=== PATIENT | female | born 1990 | race African-American/Black ===

== ENCOUNTER 2017-03-17 19:20 | Emergency (ER) | payer OTHER ==
[2017-03-17 19:31] VITALS: BP 121/85; PULSE 102; TEMP 98.2; BMI 26.2
--- NOTE | 2017-03-17 22:05 | PDOC ---
History of Present Illness - General Chief Complaint: Vaginal Bleeding Stated Complaint: VAGINAL BLEEDING/5 WKS Time Seen by Provider: 03/17/17 20:38 - History of Present Illness Initial Comments: 03/17/17 21:31 CHIEF COMPLAINT: HISTORY OF PRESENT ILLNESS: 26 yo F presents to ED with abdominal cramping and vaginal bleeding since "around 6:30 tonight." Patient reports her LMP was 02/08/17 and was told at the clinic her EGA by LMP was 5 weeks. She denies any dizziness, lightheadedness, palpitations. PAST MEDICAL HISTORY: Denies past medical history FAMILY HISTORY: Denies SOCIAL HISTORY:Denies tobacco, alcohol, illicit drug use. SURGICAL HISTORY: Denies ALLERGIES: No known drug allergies REVIEW OF SYSTEMS as per HPI PHYSICAL EXAM General Appearance: Well-appearing, appropriately dressed. No apparent distress. HEENT: EOMI, PERRLA. No conjunctival pallor. No photophobia, scleral icterus. Respiratory/Chest: Lungs CTAB. Cardiovascular: RRR. S1, S2. Gastrointestinal/Abdominal: Normal bowel sounds. Abdomen soft, non-distended. No tenderness or rebound tenderness. No organomegaly, pulsatile mass, guarding , hernia, hepatomegaly, splenomegaly. Musculoskeletal/Extremities: Normal inspection. FROM of all extremities, normal capillary refill. Pelvis Stable. No CVA tenderness. No tenderness to extremities, pedal edema, swelling, erythema or deformity. Integumentary: Appropriate color, dry, warm. No cyanosis, erythema, jaundice or rash Neurologic: pressure supervisor II-XII intact. Fully oriented, alert. Appropriate mood/affect. Motor strength 5/5. No appreciable EOM palsy, facial droop or sensory deficit. Past History - Past Medical History Allergies/Adverse Reactions: Allergies Allergy/AdvReac Type Severity Reaction Status Date / Time No Known Allergies Allergy Verified 03/18/17 02:31 Home Medications: Ambulatory Orders NK [No Known Home Medication] 03/18/17 - Reproductive History (#): 2 Para: 0 Therapeutic (s) & number: Yes Spontaneous : 0 - Suicide/Smoking/Psychosocial Hx Smoking Status: No Smoking History: Never smoked Have you smoked in the past 12 months: No Number of Cigarettes Smoked Daily: 0 Information on smoking cessation initiated: No Hx Alcohol Use: No Drug/Substance Use Hx: No Substance Use Type: None *Physical Exam - Vital Signs Last Vital Signs Temp Pulse Resp BP Pulse Ox 98.2 F 102 H 18 121/85 100 03/17/17 19:27 03/17/17 19:27 03/17/17 19:27 03/17/17 19:27 03/17/17 19:27 ED Treatment Course - LABORATORY CBC & Chemistry Diagram: 03/17/17 22:20 Medical Decision Making - Medical Decision Making 03/17/17 23:45 26 yo F presents to ED with abdominal cramping and vaginal bleeding since "around 6:30 tonight." -CBC, CMP, PT/INR, beta hcg -TV ultrasound beta hcg 25 TV ultrasound negative for IUP, ? early vs ectopic vs miscarriage Advised patient that she must return or go to clinic in 48 hours for repeat blood work. Advised patient of signs and symptoms for return to ER; patient verbalized understanding and agrees to plan. = *DC/Admit/Observation/Transfer Diagnosis at time of Disposition: Vaginal bleeding in - Discharge Dispostion Disposition: HOME Condition at time of disposition: Stable Admit: No - Patient Instructions Printed Discharge Instructions: DI for Vaginal Bleeding During , DI for Ectopic , DI for Threatened Additional Instructions: It is unclear the cause of your vaginal bleeding. As discussed, you MUST return in 48 hours to either the emergency room or the clinic to repeat your bloodwork. If you develop any severe bleeding (more than one soaked pad an hour ), fever, chills, increased abdominal pain (especially to one side), or any new or worsening symptoms, please return to the ER. - Post Discharge Activity Forms/Work/School Notes: Back to Work
[2017-03-17 22:25] LABS: URINE APPEARANCE SLCLOUDY; URINE BILIRUBIN NEGATIVE (NEGATIVE); URINE BLOOD 3+ (NEGATIVE); URINE COLOR YELLOW; URINE GLUCOSE (UA) NEGATIVE (NEGATIVE); URINE KETONE NEGATIVE (NEGATIVE); URINE NITRITE NEGATIVE (NEGATIVE); URINE PROTEIN NEGATIVE (NEGATIVE); URINE UROBILINOGEN NEGATIVE mg/dL (0.2-1.0)
[2017-03-17 22:28] LABS: URINE BACTERIA RARE /hpf (NONE SEEN); URINE MUCUS RARE; URINE RBC 3 /hpf (0-3); URINE WBC 23 /hpf (3-5)
[2017-03-17 22:39] LABS: BASOPHIL 0.7 % (0-2.0); EOSINOPHIL 2.1 % (0-4.5); MCH 27.6 pg (25.7-33.7); MCHC 34.4 g/dl (32.0-36.0); MEAN CELL VOLUME 80.1 fl (80-96); MEAN PLT VOLUME 10.1 fl (7.5-11.1); PLATELET COUNT 306 K/MM3 (134-434); RDW 14.6 % (11.6-15.6); WHITE BLOOD COUNT 6.5 K/mm3 (4.0-10.0)
[2017-03-17 23:43] LABS: URINE LEUK ESTERASE TRACE (NEGATIVE)
== END 2017-03-18 00:09 | disposition home or self-care (01) ==
LOC: JER 19:20 → UNDOADMIN 22:05 → JERBED 22:05 → JER 03-18 00:09
DX: O20.8 Other hemorrhage in early pregnancy (principal); Z3A.01 Less than 8 weeks gestation of pregnancy
CPT/HCPCS: 36415; 76817-TC; 81003; 81015; 84702; 85025; 86850; 86900; 86901; 87086; 99282-25

== ENCOUNTER 2017-11-14 20:34 | Emergency (ER) | payer OTHER ==
--- NOTE | 2017-11-14 20:42 | PDOC ---
Rapid Medical Evaluation Time Seen by Provider: 11/14/17 20:38 Medical Evaluation: Allergies Allergy/AdvReac Type Severity Reaction Status Date / Time No Known Allergies Allergy Verified 03/18/17 02:31 11/14/17 20:41 I have performed a brief in-person evaluation of this patient. The patient presents with a chief complaint of: lower abdominal cramping 10wks Pertinent physical exam findings: abd SNTND. Cosmetologist Apprentice- deferred I have ordered the following: urine, labs, TVUS The patient will proceed to the ED for further evaluation. Discharge Disposition - Diagnosis Abdominal cramping - Referrals - Patient Instructions - Post Discharge Activity
[2017-11-14 20:44] VITALS: BMI 28.3
[2017-11-14 21:33] LABS: URINE APPEARANCE CLEAR; URINE BILIRUBIN NEGATIVE (<2.0 mg/dL); URINE BLOOD NEGATIVE (NEGATIVE); URINE COLOR STRAW; URINE GLUCOSE (UA) NEGATIVE (NEGATIVE); URINE KETONE TRACE (NEGATIVE); URINE LEUK ESTERASE NEGATIVE (NEGATIVE); URINE NITRITE NEGATIVE (NEGATIVE); URINE PROTEIN NEGATIVE (NEGATIVE); URINE UROBILINOGEN NEGATIVE mg/dL (0.2-1.0)
[2017-11-14 22:33] LABS: BASO % 0.9 % (0-2.0); EOS % 1.1 % (0-4.5); HEMATOCRIT 37.9 % (32.4-45.2); HEMOGLOBIN 12.9 GM/dL (10.7-15.3); LYMPH % 23.6 % (8-40); MCH 27.1 pg (25.7-33.7); MEAN CELL VOLUME 79.8 fl (80-96); MEAN PLT VOLUME 9.3 fl (7.5-11.1); MONO % 6.9 % (3.8-10.2); NEUT % 67.5 % (42.8-82.8); PLATELET COUNT 339 K/MM3 (134-434); RBC 4.74 M/mm3 (3.60-5.2); RDW 14.6 % (11.6-15.6); WHITE BLOOD COUNT 7.8 K/mm3 (4.0-10.0)
[2017-11-14 22:59] LABS: ANION GAP 7 (8-16); BLOOD UREA NITROGEN 4 mg/dL (7-18); CALCIUM 9.9 mg/dL (8.5-10.1); CHLORIDE 102 mmol/L (98-107); CO2 26 mmol/L (21-32); CREATININE 0.5 mg/dL (0.55-1.02); GLUCOSE,RANDOM 81 mg/dL (74-106); POTASSIUM 3.9 mmol/L (3.5-5.1); SODIUM 135 mmol/L (136-145)
--- NOTE | 2017-11-14 23:00 | PDOC ---
History of Present Illness - General Chief Complaint: Pain Stated Complaint: CRAMPS/10WKS Time Seen by Provider: 11/14/17 20:38 History Source: Patient - History of Present Illness Initial Comments: 11/14/17 22:55 27yoF at approx 10w by dates, LMP 09/01/17, presnets w/ uterine cramping pain all day today, NO BLEEDING. did not eat or drink today becuase feeling cramps. no vomiting no fever. VS reviewed, HR 104 on triage HR normalized to 86 on examination. NAD + enlarged fibroid uterus. transabd sono w/ + live active IUP, FHR 150 bpm. 27yoF w/ cramping during . Udip from RME negative for infection OK for DC. Advised hydration, hydration, hydration. Has OB appointment in 2 weeks. Continue vitamins. Past History - Past Medical History Allergies/Adverse Reactions: Allergies Allergy/AdvReac Type Severity Reaction Status Date / Time No Known Allergies Allergy Verified 11/14/17 20:42 Home Medications: Ambulatory Orders Ferrous Sulfate [Iron] 325 mg PO DAILY 11/14/17 Vit 108/Iron/Folic AC [ One Tablet] 1 each PO DAILY 11/14/17 COPD: No - Reproductive History Is Patient Now?: Yes (#): 1 Para: 0 Cervical CA: No Dysfunctional Uterine Bleeding: No Ectopic : No Endometrial CA: No Polycystic Ovaries: No Therapeutic (s) & number: Yes Tubal Ligation: No Spontaneous : 0 - Suicide/Smoking/Psychosocial Hx Smoking Status: No Smoking History: Never smoked Have you smoked in the past 12 months: No Number of Cigarettes Smoked Daily: 0 Hx Alcohol Use: No Drug/Substance Use Hx: No Substance Use Type: None *Physical Exam - Vital Signs Last Vital Signs Temp Pulse Resp BP Pulse Ox 98.6 F 104 H 18 122/76 99 11/14/17 20:43 11/14/17 20:43 11/14/17 20:43 11/14/17 20:43 11/14/17 20:43 ED Treatment Course - LABORATORY CBC & Chemistry Diagram: 11/14/17 22:22 11/14/17 22:22 - ADDITIONAL ORDERS Additional order review: Laboratory Results 11/14/17 20:43 Urine Color Straw Urine Appearance Clear Urine pH 6.0 Ur Specific [place] 1.008 Urine Protein Negative Urine Glucose (UA) Negative Urine Ketones Trace H Urine Blood Negative Urine Nitrite Negative Urine Bilirubin Negative Urine Urobilinogen Negative Ur Leukocyte Esterase Negative 11/14/17 22:22 RBC 4.74 MCV 79.8 L MCHC 34.0 RDW 14.6 MPV 9.3 Neutrophils % 67.5 Lymphocytes % 23.6 D Monocytes % 6.9 Eosinophils % 1.1 Basophils % 0.9 *DC/Admit/Observation/Transfer Diagnosis at time of Disposition: Abdominal cramping, - Discharge Dispostion Disposition: HOME Condition at time of disposition: Good Decision to Admit order: No - Referrals Referrals: Marianne Jolly MD [Primary Care Provider] - - Patient Instructions Additional Instructions: Followup with your CHARGE ACCOUNT CLERK as scheduled. Continue vitamins. Be sure to eat and stay hydrated. The most common cause of cramping in is dehydration. Call your doctor if you have bleeding AND cramping together similar to a period. Return to the ER if: you have bleeding SOAKING through more than 2 pads per HOUR. - Post Discharge Activity
[2017-11-14 23:11] VITALS: BP 110/82; PULSE 89; TEMP 98.5
[2017-11-14 23:19] LABS: PLATELET ESTIMATE ADEQUATE
== END 2017-11-14 23:11 | disposition home or self-care (01) ==
LOC: JER 20:34
DX: O26.891 Other specified pregnancy related conditions, first trimester (principal); R10.30 Lower abdominal pain, unspecified; Z3A.10 10 weeks gestation of pregnancy
CPT/HCPCS: 36415; 80048; 81003; 84702; 85025; 86850; 86900; 86901; 87086; 99282-25

== ENCOUNTER 2018-02-26 18:51 | Emergency (ER) | payer OTHER ==
--- NOTE | 2018-02-26 19:00 | PDOC ---
Rapid Medical Evaluation Time Seen by Provider: 02/26/18 18:57 Medical Evaluation: Allergies Allergy/AdvReac Type Severity Reaction Status Date / Time No Known Allergies Allergy Verified 01/15/18 15:51 I have performed a brief in-person evaluation of this patient. The patient presents with a chief complaint of: 25 weeks . Feels dizzy. headache. No vaginal bleeding. No abd pain. Pertinent physical exam findings: none. I have ordered the following: UA/culture, labs, IV insert The patient will proceed to the ED for further evaluation. Discharge Disposition - Diagnosis Dizziness, - Referrals - Patient Instructions - Post Discharge Activity
[2018-02-26 19:05] VITALS: BMI 33.3
--- NOTE | 2018-02-26 19:32 | PDOC ---
History of Present Illness - General Chief Complaint: Lightheaded Stated Complaint: WEAKNESS/25 WKS Time Seen by Provider: 02/26/18 18:57 History Source: Patient - History of Present Illness Initial Comments: 02/26/18 19:33 Patient is a 27 year old female at a self-reported 27 weeks gestation who presents to our ED c/o weakness and abdominal pressure. Denies any shortness of breath, chest pain. States she has had decreased PO intake over the last few days. Last office administrator appointment 3 weeks previous at which time everything was normal. Patient denies diarrhea/constipation, dysuria/hematuria, sick contact or recent travel. NKDA Surgical: denies Social: denies toxic habits OB-Group Account Director: Dr. Bales Past History - Past Medical History Allergies/Adverse Reactions: Allergies Allergy/AdvReac Type Severity Reaction Status Date / Time No Known Allergies Allergy Verified 02/26/18 19:01 Home Medications: Ambulatory Orders Ferrous Sulfate [Iron] 325 mg PO DAILY 11/14/17 Vit 108/Iron/Folic AC [ One Tablet] 1 each PO DAILY 11/14/17 COPD: No DVT: No Disorders: Yes (fibroids) - Reproductive History (#): 1 Para: 0 Cervical CA: No Dysfunctional Uterine Bleeding: No Ectopic : No Endometrial CA: No Polycystic Ovaries: No Therapeutic (s) & number: Yes Tubal Ligation: No Spontaneous : 0 - Suicide/Smoking/Psychosocial Hx Smoking Status: No Smoking History: Never smoked Have you smoked in the past 12 months: No Number of Cigarettes Smoked Daily: 0 Information on smoking cessation initiated: No Hx Alcohol Use: No Drug/Substance Use Hx: No Substance Use Type: None Review of Systems - Review of Systems Constitutional: Yes: Weakness. No: Chills, Fever HEENTM: No: Blurred Vision, Double Vision Respiratory: No: Cough, Shortness of Breath Cardiac (ROS): No: Chest Pain, Lightheadedness, Palpitations, Syncope ABD/GI: Yes: Poor Fluid Intake. No: Constipated, Diarrhea, Nausea, Vomiting : No: Burning, Dysuria *Physical Exam - Vital Signs Last Vital Signs Temp Pulse Resp BP Pulse Ox 98.4 F 111 H 19 118/73 99 02/26/18 18:59 02/26/18 18:59 02/26/18 18:59 02/26/18 18:59 02/26/18 18:59 - Physical Exam General Appearance: Yes: Nourished, Appropriately Dressed HEENT: positive: EOMI, VINH Neck: positive: Trachea midline, Supple Respiratory/Chest: positive: Lungs Clear, Normal Breath Sounds. negative: Labored Respiration, Rapid RR Cardiovascular: positive: S1, S2 Gastrointestinal/Abdominal: positive: Other (Fundal height above umbilicus) Musculoskeletal: negative: CVA Tenderness (R), CVA Tenderness (L) Extremity: positive: Normal Capillary Refill, Normal Inspection Integumentary: positive: Normal Color, Dry, Warm Neurologic: positive: unhairing inspector II-XII NML intact, Fully Oriented, Alert ED Treatment Course - LABORATORY CBC & Chemistry Diagram: 02/26/18 19:43 02/26/18 22:11 Medical Decision Making - Medical Decision Making 02/26/18 20:39 27 year old female with weakness and abdominal pressure. Labs ordered in triage. Will add on EKG and Troponin. Reassess. 02/26/18 21:01 Patient reassesed - symptomatically improved UA clean CMP, Trop pending EKG shows Sinus Tach (HR 105) no NAI/STD, TWI - non ischemic ECG, no prior ECG in system Repeat VS pending 02/26/18 21:03 CMP hemolyzed. Repeat CMP Tachycardia resolved 02/26/18 22:46 CMP unremarkable. Will discharge to L&D for further evaluation. *DC/Admit/Observation/Transfer Diagnosis at time of Disposition: , Weakness - Discharge Dispostion Disposition: HOME Condition at time of disposition: Good Decision to Admit order: No - Referrals Referrals: Mir Lindsey MD [Primary Care Provider] - - Patient Instructions Additional Instructions: You were evaluated today for weakness and lightheadedness. All of your labs and an EKG showed no concerning findings. Please follow-up with your office administrator in the next 2-3 days. Labor and delivery instructions:Discharge to home. Diet and activity as tolerated. Keep all scheduled appointments. Drink 8-10 glasses of water a day to stay hydrated. Return to the hospital if you begin having contractions that are increasing in intensity for one hour, your water breaks, you start bleeding, or you do not feel the baby moving. - Post Discharge Activity
[2018-02-26] MEDS ORDERED: SODIUM CHLORIDE 0.9% 500 ML INFUS.BAG IV ONE (19:38)
--- NOTE | 2018-02-26 19:55 | PDOC ---
Attending Attestation - Resident Resident Name: Corrine Lozada - ED Attending Attestation I have performed the following: I have examined & evaluated the patient, The case was reviewed & discussed with the resident, I agree w/resident's findings & plan, Exceptions are as noted - HPI HPI: 02/26/18 19:54 The patient is a 27 year old female, 25 weeks , with no significant past medical history who presents to the ER with lightheadedness. Pt states that she felt like she was going to pass out but did not lose consciousness. Pt denies CP/SOB. Denies any new leg swelling. Patient states she has not eaten anything today. The patient denies chest pain, shortness of breath, headache, and dizziness. Denies fever, chills, nausea, vomit, diarrhea, and constipation. Denies dysuria, frequency, urgency, and hematuria. Allergies: NKA Past surgical history: None reported. Social history: No reported alcohol, drug, or cigarette use. pediatric intensive physician: Dr. Lindsey - Physicial Exam PE: 02/26/18 19:55 GENERAL: Awake, alert, and fully oriented, in no acute distress. HEAD: No signs of trauma EYES: PERRLA, EOMI, sclera anicteric, conjunctiva clear ENT: Auricles normal inspection, hearing grossly normal, nares patent, oropharynx clear without exudates. Moist mucosa NECK: Nontender, no stepoffs, Normal ROM, supple, no lymphadenopathy, JVD, or masses LUNGS: Breath sounds equal, clear to auscultation bilaterally. No wheezes, and no crackles HEART: Regular rate and rhythm, normal S1 and S2, no murmurs, rubs or gallops ABDOMEN: Soft, gravid, nontender, normoactive bowel sounds. No guarding, no rebound. No masses EXTREMITIES: Normal range of motion, no edema. No clubbing or cyanosis. No cords, erythema, or tenderness NEUROLOGICAL: Cranial nerves II through XII intact. 5/5 strength and sensation in all extremities, Normal speech, normal gait, normal cerebellar function SKIN: Warm, Dry, normal turgor, no rashes or lesions noted. - Medical Decision Making 02/26/18 19:55 27 F with lightheadedness, presyncope. Likely 2/2 poor PO today. Pt with no complaints at this time. Will check basic labs and EKG. Pt HD stable at this time. - Labs - EKG - IVF - L&D when cleared 02/26/18 22:47 Labs wnl EKG unremarkable Pt reassessed s/p 1L IVF - states she feels well. Will txfer to L&D for FHM Pt is well appearing, with normal vitals. Clinically stable for DC at this time. I discussed the physical exam findings, ancillary test results and final diagnoses with the patient. I answered all of the patient's questions. The patient was satisfied with the care received and felt comfortable with the discharge plan and treatment plan. The patient agrees to follow up with the primary care physician within 24-72 hours.
[2018-02-26 20:08] LABS: BASO % 0.8 % (0-2.0); HEMATOCRIT 35.2 % (32.4-45.2); HEMOGLOBIN 11.8 GM/dL (10.7-15.3); LYMPH % 19.1 % (8-40); MCH 27.1 pg (25.7-33.7); MCHC 33.6 g/dl (32.0-36.0); MEAN CELL VOLUME 80.5 fl (80-96); MEAN PLT VOLUME 9.4 fl (7.5-11.1); MONO % 7.4 % (3.8-10.2); NEUT % 70.7 % (42.8-82.8); PLATELET COUNT 308 K/MM3 (134-434); RBC 4.38 M/mm3 (3.60-5.2); RDW 15.8 % (11.6-15.6); URINE APPEARANCE CLEAR; URINE BILIRUBIN NEGATIVE (<2.0 mg/dL); URINE COLOR STRAW; URINE GLUCOSE (UA) NEGATIVE (NEGATIVE); URINE KETONE NEGATIVE (NEGATIVE); URINE LEUK ESTERASE NEGATIVE (NEGATIVE); URINE NITRITE NEGATIVE (NEGATIVE); URINE PROTEIN NEGATIVE (NEGATIVE); URINE UROBILINOGEN NEGATIVE mg/dL (0.2-1.0); WHITE BLOOD COUNT 8.6 K/mm3 (4.0-10.0)
[2018-02-26 21:24] LABS: PLATELET ESTIMATE ADEQUATE
[2018-02-26 22:38] LABS: ALBUMIN 2.6 g/dl (3.4-5.0); ALK PHOS 55 U/L (45-117); ANION GAP 12 MMOL/L (8-16); BILIRUBIN,TOTAL 0.2 mg/dL (0.2-1); BLOOD UREA NITROGEN 4 mg/dL (7-18); CALCIUM 8.6 mg/dL (8.5-10.1); CHLORIDE 114 mmol/L (98-107); CO2 17 mmol/L (21-32); CREATININE 0.2 mg/dL (0.55-1.3); GLUCOSE,RANDOM 65 mg/dL (74-106); POTASSIUM 4.2 mmol/L (3.5-5.1); SGPT/ALT 16 U/L (13-61); SODIUM 143 mmol/L (136-145); TOT PROT 6.3 g/dl (6.4-8.2)
[2018-02-26 22:39] LABS: SGOT/AST 23 U/L (15-37)
[2018-02-27 00:53] VITALS: TEMP 98.8
[2018-02-27] MEDS ORDERED: DEXTROSE 5%-LACTATED RINGERS 500 ML IV ONE ×4 (01:15→03:15)
[2018-02-27] MEDS ORDERED: DEXTROSE 5%-LACTATED RINGERS 250 ML IV ONE ×2 (01:45→02:15)
[2018-02-27 01:57] VITALS: BP 116/90; PULSE 88
--- NOTE | 2018-02-27 11:25 | EKG ---
Test Reason : Blood Pressure : / mmHG Vent. Rate : 105 BPM Atrial Rate : 105 BPM P-R Int : 126 ms QRS Dur : 072 ms QT Int : 324 ms P-R-T Axes : 058 021 024 degrees QTc Int : 428 ms SINUS TACHYCARDIA OTHERWISE NORMAL ECG NO PREVIOUS ECGS AVAILABLE Confirmed by CINDY MCMANUS, GARY ([id number]) on 02/27/2018 11:25:24 AM Referred By: Confirmed By:GARY WHITE MD
== END 2018-02-27 04:33 | disposition home or self-care (01) ==
LOC: JER 18:51
DX: O26.892 Other specified pregnancy related conditions, second trimester (principal); R53.1 Weakness; Z3A.25 25 weeks gestation of pregnancy
CPT/HCPCS: 36415; 80053; 81003; 82550; 84484; 85025; 87086; 87186; 93005; 93010; 99283-25

== ENCOUNTER 2018-03-02 20:15 | Emergency (ER) | payer OTHER ==
[2018-03-02 20:45] VITALS: BMI 33.1
[2018-03-02] MEDS ORDERED: ACETAMINOPHEN 500 MG TABLET (FP) PO ONE (21:18)
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
[2018-03-02] MEDS ORDERED: ACETAMINOPHEN 325 MG TABLET (FP) ONE (21:20)
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
[2018-03-02] MEDS ORDERED: DEXTROSE 5%-LACTATED RINGERS 500 ML IV ONE ×2 (22:45→23:45)
[2018-03-02 23:45] VITALS: BP 119/54; PULSE 100; TEMP 99.1
[2018-03-02] MEDS ORDERED: DEXTROSE 5%-LACTATED RINGERS 1,000 ML IV ONE (23:51)
[2018-03-03] MEDS ORDERED: TERBUTALINE SULFATE 1 MG/1 ML VIAL SQ ONE (00:26)
[2018-03-03] MEDS: TERBUTALINE SULFATE 1 MG/1 ML VIAL SQ SCH ×2 (00:30→00:50)
== END 2018-03-03 02:13 | disposition home or self-care (01) ==
LOC: JER 20:15
DX: O26.892 Other specified pregnancy related conditions, second trimester (principal); M54.5 Low back pain; S39.82XA Other specified injuries of lower back, initial encounter; V43.52XA Car driver injured in collision with other type car in traffic accident, initial encounter; Y92.414 Local residential or business street as the place of occurrence of the external cause; Y93.89 Activity, other specified; Y99.8 Other external cause status; Z3A.26 26 weeks gestation of pregnancy
CPT/HCPCS: 99283-25

== ENCOUNTER 2018-05-25 04:30 | Inpatient (IN) | payer OTHER ==
[2018-05-25] MEDS ORDERED: ELECTROLYTE-148 SOLN 500 ML IV ONE ×2 (06:00→06:30)
[2018-05-25] MEDS ORDERED: CITRIC ACID/SODIUM CITRATE 30 ML UNIT-DOSE CUP PO ONE (06:15)
[2018-05-25 06:23] LABS: BASO % 1.2 % (0-2.0); EOS % 1.4 % (0-4.5); HEMATOCRIT 36.7 % (32.4-45.2); HEMOGLOBIN 12.4 GM/dL (10.7-15.3); LYMPH % 31.2 % (8-40); MCH 26.8 pg (25.7-33.7); MCHC 33.8 g/dl (32.0-36.0); MEAN CELL VOLUME 79.1 fl (80-96); MEAN PLT VOLUME 9.5 fl (7.5-11.1); MONO % 8.4 % (3.8-10.2); NEUT % 57.8 % (42.8-82.8); PLATELET COUNT 223 K/MM3 (134-434); RBC 4.63 M/mm3 (3.60-5.2); RDW 16.5 % (11.6-15.6); WHITE BLOOD COUNT 6.6 K/mm3 (4.0-10.0)
[2018-05-25 06:25] VITALS: BMI 36.3
[2018-05-25] MEDS ORDERED: TUBERCULIN PPD 5 TU/0.1ML SYRINGE (IN PATIENT USE ONLY) ID ONE (06:30)
[2018-05-25 06:39] LABS: INR 0.89 (0.83-1.09); PROTHROMBIN TIME (PATIENT) 10.5 SEC (9.7-13.0)
[2018-05-25 06:42] LABS: ACTIVATED PTT 27.8 SECONDS (25.2-36.5)
[2018-05-25] MEDS ORDERED: OXYTOCIN 20 UNITS in 0.9% NS 20 UNIT/1,000 ML INFUS.BAG IV ONE (07:11)
--- NOTE | 2018-05-25 07:24 | HP ---
Past Medical History - Admission Chief Complaint: Uterine contractions, SROM History of Present Illness: 28yo @ 38+wks here with ctx, SROM at 5:45AM, clears Preg c/b large IRON fibroid, oblique presentation No VB. 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. Weeks Gestation by Dates: 38 ...EDC by Dates: 06/08/18 ...EDC by Sono: 06/08/18 - Past Surgical History Hx Myomectomy: No Hx Transabdominal Cerclage: No - Smoking History Smoking history: Never smoked Have you smoked in the past 12 months: No Aproximately how many cigarettes per day: 0 - Alcohol/Substance Use Hx Alcohol Use: No Home Medications - Allergies Allergies/Adverse Reactions: Allergies Allergy/AdvReac Type Severity Reaction Status Date / Time No Known Allergies Allergy Verified 03/02/18 20:45 - Home Medications Home Medications: Ambulatory Orders Ferrous Sulfate [Iron] 325 mg PO DAILY 11/14/17 Vit 108/Iron/Folic AC [ One Tablet] 1 each PO DAILY 11/14/17 Physical Exam - Maternity Vital Signs: Vital Signs Temperature 98.6 F 05/25/18 06:27 Pulse Rate 109 H 05/25/18 06:27 Respiratory Rate 20 05/25/18 06:27 Blood Pressure 124/86 05/25/18 06:27 O2 Sat by Pulse Oximetry (%) Constitutional: Yes: Well Nourished, No Distress, Calm Eyes: Yes: WNL, Conjunctiva Clear, EOM Intact HENT: Yes: WNL, Atraumatic, Normocephalic Neck: Yes: WNL, Supple, Trachea Midline Cardiovascular: Yes: WNL, Regular Rate and Rhythm Breast(s): Yes: WNL - Abdominal Exam/OB Number of Fetuses: Single Presentation: Oblique Contractions: Yes Regularity: Regular Monitor Mode: External Category: I Accelerations: None Decelerations: None - Vaginal Exam/OB Vaginal Bleediing: No Speculum Exam: No Dilatation (cm): closed Effacement (%): 0 Station: -3 - Physical Exam Edema: No - Labs Lab Results: CBC, BMP 05/25/18 06:05 Assessment/Plan 28yo @ 38wks here with uterine contractions, SROM Preg c/b 8cm IRON fibroid, oblique presentation Admit to L&D NPO, IVFs Ancef SCDs Discussed need for PLTCS, possible Classical C/S, risk of procedure discussed including bleeding, infection, injury to bladder, bowel, tubes, ovaries, infant , vessels. Risk of significant bleeding and possible need for Classical C- Section. Arlene Hernandez MD
[2018-05-25] MEDS ORDERED: morphine SULFATE/Preservative Free 0.5 MG/ML (1cc Syringe) ONE (07:28)
[2018-05-25] MEDS ORDERED: ePHEDrine SULFATE 50 MG/1 ML AMPULE ONE (07:28)
[2018-05-25] MEDS ORDERED: ceFAZolin SODIUM 1 GM VIAL ONE ×2 (07:44)
[2018-05-25] MEDS ORDERED: PHENYLEPHRINE HCL 10 MG/1 ML SINGLE DOSE VIAL ONE (07:48)
[2018-05-25] MEDS ORDERED: OXYTOCIN 10 UNITS/ML VIAL ONE (07:54)
[2018-05-25] MEDS ORDERED: ONDANSETRON 4 MG/2 ML VIAL IVPUSH PRN (08:02)
[2018-05-25] MEDS ORDERED: METHYLERGONOVINE MALEATE 0.2 MG/1 ML AMP IM PRN (08:26)
[2018-05-25] MEDS ORDERED: IBUPROFEN 800 MG/8 ML IJ IVPB PRN (08:26)
[2018-05-25] MEDS ORDERED: WITCH HAZEL 50% (TUCKS) 40 PAD/JAR PAD TP PRN (08:26)
--- NOTE | 2018-05-25 09:13 | OP ---
Operative Note - Note: Operative Date: 05/25/18 Operation: PLTCS Findings: VFI. 7.12lbs. Apgars 9/9. Normal tubes and ovaries. left IRON 4-5cm fibroid, large left fundal fibroid Surgeon: Arlene Hernandez Case Maker: Brain Salamanca Anesthesia: Spinal Estimated Blood Loss (mls): 500 Operative Report Dictated: Yes
[2018-05-25] MEDS: OXYTOCIN 20 UNITS in 0.9% NS 20 UNIT/1,000 ML INFUS.BAG IV SCH (09:30)
[2018-05-25] MEDS ORDERED: DEXTROSE 5%-WATER - 250 ML IVPB ONE (10:45)
[2018-05-25] MEDS: FERROUS SO4 325 MG TABLET (FP) PO SCH ×2 (11:28→22:33)
[2018-05-25] MEDS: PRENATAL VITAMINS W/ FOLIC ACID TABLET (FP) PO SCH (11:28)
--- NOTE | 2018-05-25 12:13 | OP ---
DATE OF OPERATION: 05/25/2018 PREOPERATIVE DIAGNOSIS: A 38-week , spontaneous rupture of membranes, oblique presentation. POSTOPERATIVE DIAGNOSIS: A 38-week , spontaneous rupture of membranes, oblique presentation. PROCEDURE: Primary low transverse section. ANESTHESIA: Spinal. SURGEON: Arlene Hernandez MD ANIMAL TRAINER: ARTURO Matute ESTIMATED BLOOD LOSS: 500. IV FLUIDS: Per Anesthesia record. URINE OUTPUT: 100 mL clear urine at the end of the procedure. FINDINGS: Viable female infant oblique presentation delivered KATHI. Apgars 9, 9. Weight 7 pounds 12 ounces. Normal tubes and ovaries bilaterally. Large right fundal fibroid. Right lower uterine segment fibroid 4-5 cm. COMPLICATIONS: None. CONDITION: Stable to procedure. DESCRIPTION OF PROCEDURE: After appropriate consents were signed and risks, benefits, and alternatives to procedure were discussed, the patient consented to primary low transverse section, possible classical section. She was taken to the operating room. Spinal anesthesia was administered. She was placed in supine position. Valenzuela catheter was inserted. Her abdomen was prepped and draped in the normal sterile fashion. A time-out was performed confirming correct patient and procedure. A Pfannenstiel skin incision was made after anesthesia was confirmed. The incision was carried down through the underlying layers until the fascia was nicked in the midline. The fascia was then extended bilaterally with the Melo scissors. Inferior aspect of the fascia was grasped with the Kochers, tented upward. Rectus muscles were dissected off bluntly and with the Melo scissors. Attention was then paid to the superior aspect, which was then taken down in a similar fashion. The rectus muscles were then bluntly in the midline, and the peritoneum was entered bluntly. Bladder blade was inserted. Vesicouterine reflection was grasped, tented upwards, and nicked in the midline and extended laterally with the Metzenbaum scissors. Bladder flap was then created digitally. Bladder blade was reinserted. The uterus was then incised in a low transverse fashion. Clear amniotic fluid was noted. was noted to be in oblique lie. There was a left lower uterine segment fibroid that was 4-5 cm in size. The infant's head was then delivered without difficulty. No cord or nuchal. No meconium noted. The remainder body was delivered without difficulty. The cord was clamped and cut. The was handed off to the awaiting pedicle staff. The placenta was then removed spontaneously. The uterus was cleared of clot and debris. The uterus was then closed with a 1-0 Vicryl in 2 layers. The uterus could not be exteriorized secondary to the fundal fibroid. Both tubes and ovaries were noted to be normal bilaterally. Hysterotomy was reinspected and had an area centrally that was bleeding. This was reinforced with another 1-0 Vicryl with good hemostasis. Gutters were cleared of clot and debris. Hysterotomy was reinspected and noted to be hemostatic. Bladder blade was then removed. The muscle was closed with 2-0 chromic. Fascia was closed with 0 Vicryl. The skin was reapproximated with 3-0 Vicryl. Bandages were placed. Sponge, lap, and needle count was correct x3. The patient did receive Ancef at the start of the procedure. She tolerated the procedure well and was taken to the recovery room in stable condition. MD TRACEY BRUSH/[id number]
[2018-05-25 13:05] LABS: ANION GAP 8 MMOL/L (8-16); BLOOD UREA NITROGEN 5 mg/dL (7-18); CALCIUM 8.6 mg/dL (8.5-10.1); CHLORIDE 109 mmol/L (98-107); CO2 23 mmol/L (21-32); CREATININE 0.5 mg/dL (0.55-1.3); GLUCOSE,RANDOM 96 mg/dL (74-106); POTASSIUM 3.8 mmol/L (3.5-5.1); SODIUM 140 mmol/L (136-145)
[2018-05-25] MEDS: ACETAMINOPHEN 1000 MG/100 ML VIAL (NON FORMULARY) IVPB PRN ×2 (17:41→23:57)
[2018-05-26] MEDS: SIMETHICONE 80 MG TAB.CHEW (FP) PO PRN ×4 (06:33→19:36)
[2018-05-26] MEDS: oxyCODONE HCL 5 MG TABLET PO PRN ×4 (06:33→19:37)
[2018-05-26 08:51] LABS: BASO % 0.3 % (0-2.0); EOS % 0.5 % (0-4.5); HEMATOCRIT 35.4 % (32.4-45.2); HEMOGLOBIN 12.6 GM/dL (10.7-15.3); LYMPH % 7.4 % (8-40); MCH 28.2 pg (25.7-33.7); MCHC 35.6 g/dl (32.0-36.0); MEAN PLT VOLUME 9.8 fl (7.5-11.1); MONO % 5.3 % (3.8-10.2); NEUT % 86.5 % (42.8-82.8); PLATELET COUNT 218 K/MM3 (134-434); RBC 4.48 M/mm3 (3.60-5.2); RDW 16.8 % (11.6-15.6); WHITE BLOOD COUNT 13.9 K/mm3 (4.0-10.0)
--- NOTE | 2018-05-26 08:53 | PN ---
Progress Note (short form) - Note Progress Note: ANESTHESIOLOGY POST-OP CHECK 28F s/p under spinal anesthesia, POD #1. No acute complaints. Denies N/V, numbness, weakness, backache, headache. Pain 1/10 and tolerable. Vital Signs Temperature 99.8 F H 05/26/18 08:33 Pulse Rate 118 H 05/26/18 08:33 Respiratory Rate 18 05/26/18 08:33 Blood Pressure 139/79 05/26/18 08:33 O2 Sat by Pulse Oximetry (%) Active Medications Acetaminophen (Ofirmev Injection -) 1,000 mg IVPB Q6H PRN PRN Reason: PAIN Last Admin: 05/25/18 23:57 Dose: 1,000 mg Diphenhydramine HCl (Benadryl Injection -) 25 mg IVPUSH Q4H PRN PRN Reason: Pruritis Ferrous Sulfate (Feosol -) 325 mg PO BID [facility] Last Admin: 05/25/18 22:33 Dose: Not Given Oxytocin/Sodium Chloride (Normal Saline+20 Units Oxytocin -) 20 unit in 1,000 mls @ 125 mls/hr IV ASDIR [facility] Last Admin: 05/25/18 09:30 Dose: 125 mls/hr Ibuprofen (Motrin -) 600 mg PO Q4H PRN PRN Reason: PAIN LEVEL 1 - 3 Ibuprofen (Caldolor Injection -) 800 mg IVPB Q8H PRN PRN Reason: PAIN LEVEL 6-10 Last Admin: 05/25/18 10:28 Dose: 800 mg Methylergonovine Maleate (Methergine Injection -) 0.2 mg IM Q4H PRN PRN Reason: Excessive Bleeding (L&D) Ondansetron HCl (Zofran Injection) 4 mg IVPUSH Q4H PRN PRN Reason: NAUSEA Oxycodone HCl (Roxicodone -) 5 mg PO Q4H PRN PRN Reason: PAIN LEVEL 4 - 6 Last Admin: 05/26/18 06:33 Dose: 5 mg Multivit/Folic Acid/Iron ( Vitamins (Sjr) -) 1 tab PO DAILY [facility] Last Admin: 05/25/18 11:28 Dose: Not Given Simethicone (Mylicon -) 80 mg PO Q4H PRN PRN Reason: GAS Last Admin: 05/26/18 06:33 Dose: 80 mg Witch Yolie/Glycerin (Tucks Pads -) 1 pad TP PRN PRN PRN Reason: Pain - Topical Gen: awake, alert, NAD No apparent anesthesia complications. Pain controlled. Continue management as per primary team.
[2018-05-26] MEDS: PRENATAL VITAMINS W/ FOLIC ACID TABLET (FP) PO SCH (09:09)
[2018-05-26] MEDS: FERROUS SO4 325 MG TABLET (FP) PO SCH ×2 (09:09→21:29)
--- NOTE | 2018-05-26 09:48 | PN ---
Post Progress Note - Subjective Subjective: 28 yo Para 1 status post primary , seen and evaluated. She c/o incision pain. Post Day: 1 Type of Delivery: Primary C/S Vital Signs: Vital Signs Temperature 99.8 F H 05/26/18 08:33 Pulse Rate 118 H 05/26/18 08:33 Respiratory Rate 18 05/26/18 08:33 Blood Pressure 139/79 05/26/18 08:33 O2 Sat by Pulse Oximetry (%) Breast Exam: Yes: Soft Uterus: Yes: Fundus below umbilicus Incision: Yes: Dressing dry and intact Abdomen/GI: Yes: Abdominal Distention, Tender Lochia: Yes: Rubra Lochia, amount: Small Extremities: Yes: Calves non-tender Activity: Other (She's lying in bed) - Labs Labs: CBC WBC 13.9 K/mm3 (4.0-10.0) H 05/26/18 07:25 RBC 4.48 M/mm3 (3.60-5.2) 05/26/18 07:25 Hgb 12.6 GM/dL (10.7-15.3) 05/26/18 07:25 Hct 35.4 % (32.4-45.2) 05/26/18 07:25 MCV 79.0 fl (80-96) L 05/26/18 07:25 MCH 28.2 pg (25.7-33.7) 05/26/18 07:25 MCHC 35.6 g/dl (32.0-36.0) 05/26/18 07:25 RDW 16.8 % (11.6-15.6) H 05/26/18 07:25 Plt Count 218 K/MM3 (134-434) 05/26/18 07:25 MPV 9.8 fl (7.5-11.1) 05/26/18 07:25 Absolute Neuts (auto) 12.0 K/mm3 (1.5-8.0) H 05/26/18 07:25 Neutrophils % 86.5 % (42.8-82.8) H D 05/26/18 07:25 Lymphocytes % 7.4 % (8-40) L D 05/26/18 07:25 Monocytes % 5.3 % (3.8-10.2) 05/26/18 07:25 Eosinophils % 0.5 % (0-4.5) 05/26/18 07:25 Basophils % 0.3 % (0-2.0) 05/26/18 07:25 Nucleated RBC % 0 % (0-0) 05/26/18 07:25 Problem List - Problems (1) Status post primary low transverse section Code(s): Z98.891 - HISTORY OF UTERINE SCAR FROM PREVIOUS SURGERY Assessment/Plan Status post primary Abdominal distention Leukocytosis IV ancef Continue Simithecone Continue clear liquid diet
[2018-05-26] MEDS ORDERED: BISACODYL 10 MG SUPP.RECT RC ONE (09:59)
[2018-05-26] MEDS ORDERED: CEFAZOLIN 1 GM/D5W 1 GM/50 ML BAG IVPB ONE (10:00)
[2018-05-26] MEDS: ACETAMINOPHEN 325 MG TABLET (FP) PO PRN ×3 (10:38→19:36)
[2018-05-26] MEDS: OXYTOCIN 20 UNITS in 0.9% NS 20 UNIT/1,000 ML INFUS.BAG IV SCH (19:30)
[2018-05-26] MEDS: IBUPROFEN 600 MG TABLET (FP) PO PRN (19:37)
[2018-05-26] MEDS ORDERED: BISACODYL 10 MG SUPP.RECT RC PRN (20:15)
[2018-05-26] MEDS: SENNOSIDES/DOCUSATE COMBO (SENNA PLUS) TABLET (UD) PO PRN (21:29)
[2018-05-27] MEDS: IBUPROFEN 600 MG TABLET (FP) PO PRN ×2 (00:11→22:25)
[2018-05-27] MEDS: SIMETHICONE 80 MG TAB.CHEW (FP) PO PRN ×4 (00:11→22:25)
[2018-05-27] MEDS: ACETAMINOPHEN 325 MG TABLET (FP) PO PRN ×4 (00:12→22:26)
[2018-05-27] MEDS: oxyCODONE HCL 5 MG TABLET PO PRN ×4 (00:13→22:26)
[2018-05-27 07:48] LABS: HEMATOCRIT 32.6 % (32.4-45.2); MCHC 33.7 g/dl (32.0-36.0); MEAN CELL VOLUME 80.2 fl (80-96); MEAN PLT VOLUME 9.2 fl (7.5-11.1); PLATELET COUNT 210 K/MM3 (134-434); RBC 4.06 M/mm3 (3.60-5.2); RDW 16.5 % (11.6-15.6); WHITE BLOOD COUNT 10.8 K/mm3 (4.0-10.0)
--- NOTE | 2018-05-27 09:01 | PN ---
Post Progress Note - Subjective Subjective: c/o gaseous discomfort less today she is passing flatus satisfactorily . bm done food isadvanced reg diet, tolerating pain scale 5/10 Post Day: 2 Type of Delivery: Primary C/S Vital Signs: Vital Signs Temperature 98.7 F 05/27/18 08:29 Pulse Rate 117 H 05/27/18 08:29 Respiratory Rate 18 05/27/18 08:29 Blood Pressure 145/92 05/27/18 08:29 O2 Sat by Pulse Oximetry (%) Selected Entries 05/26/18 05/27/18 05/27/18 22:00 02:00 06:00 Pulse Rate 121 H 116 H 114 H Blood Pressure 145/85 136/87 143/94 Breast Exam: Yes: Soft, Other (attempting BF ). No: Engorged Uterus: Yes: Fundus Firm, Fundus above umbilicus, Non-tender Incision: Yes: Dressing dry and intact (changed ), Sutures intact (steristrips in situ). No: Redness, Oozing Abdomen/GI: Yes: Abdomen soft (bs active ), Abdominal Distention (mildly distended ), Passing flatus, Tolerating PO (diet ). No: Tender Lochia: Yes: Rubra Lochia, amount: Moderate Extremities: Yes: Calves non-tender Perineum: Yes: Intact Activity: Ambulating - Labs Labs: CBC WBC 10.8 K/mm3 (4.0-10.0) H 05/27/18 07:00 RBC 4.06 M/mm3 (3.60-5.2) 05/27/18 07:00 Hgb 11.0 GM/dL (10.7-15.3) 05/27/18 07:00 Hct 32.6 % (32.4-45.2) 05/27/18 07:00 MCV 80.2 fl (80-96) 05/27/18 07:00 MCH 27.0 pg (25.7-33.7) 05/27/18 07:00 MCHC 33.7 g/dl (32.0-36.0) 05/27/18 07:00 RDW 16.5 % (11.6-15.6) H 05/27/18 07:00 Plt Count 210 K/MM3 (134-434) 05/27/18 07:00 MPV 9.2 fl (7.5-11.1) 05/27/18 07:00 Absolute Neuts (auto) 12.0 K/mm3 (1.5-8.0) H 05/26/18 07:25 Neutrophils % 86.5 % (42.8-82.8) H D 05/26/18 07:25 Lymphocytes % 7.4 % (8-40) L D 05/26/18 07:25 Monocytes % 5.3 % (3.8-10.2) 05/26/18 07:25 Eosinophils % 0.5 % (0-4.5) 05/26/18 07:25 Basophils % 0.3 % (0-2.0) 05/26/18 07:25 Nucleated RBC % 0 % (0-0) 05/26/18 07:25 Problem List - Problems (1) Status post primary low transverse section Code(s): Z98.891 - HISTORY OF UTERINE SCAR FROM PREVIOUS SURGERY (2) Fibroid (bleeding) (uterine) Code(s): D25.9 - LEIOMYOMA OF UTERUS, UNSPECIFIED Qualifiers: Uterine leiomyoma location: intramural Qualified Code(s): D25.1 - Intramural leiomyoma of uterus (3) Encounter for care after hospital delivery Code(s): Z39.2 - ENCOUNTER FOR ROUTINE FOLLOW-UP Assessment/Plan stable . sp pc/section fibroid uterus mild elevation of BP, tachycardia . Plan watch closely BP .presently no need of any meds
[2018-05-27] MEDS: FERROUS SO4 325 MG TABLET (FP) PO SCH ×2 (09:28→22:25)
[2018-05-27] MEDS: PRENATAL VITAMINS W/ FOLIC ACID TABLET (FP) PO SCH (09:28)
[2018-05-27] MEDS ORDERED: PCA PUMP KEY 1 EACH EACH ONE (19:37)
[2018-05-27] MEDS: OXYTOCIN 20 UNITS in 0.9% NS 20 UNIT/1,000 ML INFUS.BAG IV SCH (20:54)
[2018-05-27] MEDS: SENNOSIDES/DOCUSATE COMBO (SENNA PLUS) TABLET (UD) PO PRN (22:25)
--- NOTE | 2018-05-28 05:51 | PN ---
Post Progress Note Type of Delivery: Primary C/S Vital Signs: Vital Signs Temperature 98.8 F 05/27/18 22:00 Pulse Rate 118 H 05/27/18 22:00 Respiratory Rate 18 05/27/18 22:00 Blood Pressure 140/95 05/27/18 22:00 O2 Sat by Pulse Oximetry (%) Uterus: Yes: Fundus below umbilicus Incision: Yes: Dressing dry and intact Abdomen/GI: Yes: Abdomen soft, Passing flatus, Tolerating PO Lochia: Yes: Rubra Lochia, amount: Small Extremities: Yes: Calves non-tender Activity: Ambulating (No acute events overnight. Pain controlled) - Labs Labs: CBC WBC 10.8 K/mm3 (4.0-10.0) H 05/27/18 07:00 RBC 4.06 M/mm3 (3.60-5.2) 05/27/18 07:00 Hgb 11.0 GM/dL (10.7-15.3) 05/27/18 07:00 Hct 32.6 % (32.4-45.2) 05/27/18 07:00 MCV 80.2 fl (80-96) 05/27/18 07:00 MCH 27.0 pg (25.7-33.7) 05/27/18 07:00 MCHC 33.7 g/dl (32.0-36.0) 05/27/18 07:00 RDW 16.5 % (11.6-15.6) H 05/27/18 07:00 Plt Count 210 K/MM3 (134-434) 05/27/18 07:00 MPV 9.2 fl (7.5-11.1) 05/27/18 07:00 Absolute Neuts (auto) 12.0 K/mm3 (1.5-8.0) H 05/26/18 07:25 Neutrophils % 86.5 % (42.8-82.8) H D 05/26/18 07:25 Lymphocytes % 7.4 % (8-40) L D 05/26/18 07:25 Monocytes % 5.3 % (3.8-10.2) 05/26/18 07:25 Eosinophils % 0.5 % (0-4.5) 05/26/18 07:25 Basophils % 0.3 % (0-2.0) 05/26/18 07:25 Nucleated RBC % 0 % (0-0) 05/26/18 07:25 Assessment/Plan 28yo s/p PLTCS, POD#3 Routine PP care OOB, ambulate Labs reviewed Anticipate d/c to home by POD#4 Arlene Hernandez MD
[2018-05-28 07:46] LABS: SGOT/AST 22 U/L (15-37); SGPT/ALT 14 U/L (13-61)
[2018-05-28 07:50] LABS: ANION GAP 9 MMOL/L (8-16); BLOOD UREA NITROGEN 6 mg/dL (7-18); CALCIUM 8.4 mg/dL (8.5-10.1); CHLORIDE 106 mmol/L (98-107); CO2 23 mmol/L (21-32); CREATININE 0.4 mg/dL (0.55-1.3); GLUCOSE,RANDOM 64 mg/dL (74-106); POTASSIUM 3.9 mmol/L (3.5-5.1); SODIUM 139 mmol/L (136-145); URIC ACID 7.1 mg/dL (2.6-7.2)
[2018-05-28 08:01] LABS: BASO % 0.7 % (0-2.0); EOS % 4.6 % (0-4.5); HEMATOCRIT 31.9 % (32.4-45.2); HEMOGLOBIN 10.5 GM/dL (10.7-15.3); LYMPH % 14.9 % (8-40); MCH 26.6 pg (25.7-33.7); MCHC 33.1 g/dl (32.0-36.0); MEAN CELL VOLUME 80.3 fl (80-96); MEAN PLT VOLUME 9.3 fl (7.5-11.1); MONO % 7.3 % (3.8-10.2); NEUT % 72.5 % (42.8-82.8); PLATELET COUNT 226 K/MM3 (134-434); RBC 3.97 M/mm3 (3.60-5.2); RDW 16.8 % (11.6-15.6); WHITE BLOOD COUNT 8.9 K/mm3 (4.0-10.0)
[2018-05-28] MEDS: oxyCODONE HCL 5 MG TABLET PO PRN (08:52)
[2018-05-28] MEDS: SIMETHICONE 80 MG TAB.CHEW (FP) PO PRN ×2 (08:52→13:02)
[2018-05-28] MEDS: ACETAMINOPHEN 325 MG TABLET (FP) PO PRN ×2 (08:52→13:01)
[2018-05-28] MEDS: PRENATAL VITAMINS W/ FOLIC ACID TABLET (FP) PO SCH (11:55)
[2018-05-28] MEDS: FERROUS SO4 325 MG TABLET (FP) PO SCH (11:55)
[2018-05-28 12:25] VITALS: BP 143/80; PULSE 104; TEMP 98.6
[2018-05-28] MEDS: IBUPROFEN 600 MG TABLET (FP) PO PRN (13:02)
[2018-05-28 13:11] LABS: URINE APPEARANCE CLOUDY; URINE BILIRUBIN NEGATIVE (<2.0 mg/dL); URINE COLOR AMBER; URINE GLUCOSE (UA) NEGATIVE (NEGATIVE); URINE KETONE 1+ (NEGATIVE); URINE LEUK ESTERASE 2+ (NEGATIVE); URINE NITRITE NEGATIVE (NEGATIVE); URINE PROTEIN 2+ (NEGATIVE); URINE UROBILINOGEN NEGATIVE mg/dL (0.2-1.0)
[2018-05-28 13:22] LABS: EPI CELLS MANY /HPF (FEW); URINE MUCUS MODERATE
--- NOTE | 2018-05-29 19:36 | PATH ---
Surgical Pathology Report Patient Name: GEOVANNY CARDENAS [facility]. Rec. 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 Electronically Signed Alexa Calderon M.D. Gross Description The specimen is received fresh labeled placenta and is a 541 gram, 20.0 x 16.5 x 2.3 cm. placenta with attached membranes and umbilical cord. The attached membranes are boo, translucent with focal opacities and insert marginally. The umbilical cord measures 25 cm. in length and averages 1.0 cm. in diameter. The cord inserts eccentrically, 4.5 cm. to the nearest margin. No true knots or strictures are identified. Cut surface of the umbilical cord reveals 3 vessels. The surface is torres-blue with minimal fibrin deposition and appropriate caliber vessels. The maternal surface is red-brown with focal defects. Sectioning reveals red-brown, spongy parenchyma. No lesions are identified. Side Panel Padder sections are submitted in three cassettes as follows: 1- membrane rolls and umbilical cord; 2-3- full thickness sections of placenta. 05/28/2018 [facility]05/28/2018
== END 2018-05-28 14:45 | disposition home or self-care (01) | DRG 540 ==
LOC: JDEL 04:30 → JLDR 05:45 → J3W 10:15
PROVIDERS: ADMIT Obstetrics & Gynecology; ATTEND Obstetrics & Gynecology
PROC: 10D00Z1 Extraction of Products of Conception, Low, Open Approach (ICD-10-PCS; principal; 2018-05-25)
DX: O32.2XX0 Maternal care for transverse and oblique lie, not applicable or unspecified (principal); O34.13 Maternal care for benign tumor of corpus uteri, third trimester; D25.1 Intramural leiomyoma of uterus; Z37.0 Single live birth; Z3A.38 38 weeks gestation of pregnancy
CPT/HCPCS: 36415; 80048; 81003; 81015; 82962; 84450; 84460; 84550; 85025; 85027; 85610; 85730; 86593; 86850; 86900; 86901; 88307-TC; J0131

== ENCOUNTER 2021-07-05 17:46 | Emergency (ER) | payer OTHER ==
[2021-07-05 17:56] VITALS: BP 116/73; PULSE 89; TEMP 98.3; BMI 27.3
[2021-07-05] MEDS ORDERED: IBUPROFEN 600 MG TABLET (FP) PO ONE ×2 (18:29→18:30)
== END 2021-07-05 19:34 | disposition home or self-care (01) ==
LOC: JERFT 17:46
DX: M25.571 Pain in right ankle and joints of right foot (principal)
CPT/HCPCS: 73610-TC-LT-FY; 73630-TC-LT; 99284-25

== ENCOUNTER 2021-12-13 22:14 | Emergency (ER) | payer OTHER ==
[2021-12-13 22:20] VITALS: BMI 29.2
[2021-12-14] MEDS ORDERED: LACTATED RINGERS SOLUTION 1000 ML INFUS.BAG IV ONE (01:27)
[2021-12-14 02:19] LABS: EOS % 1.3 % (0-4.5); HEMATOCRIT 32.5 % (32.4-45.2); LYMPH % 22.7 % (8-40); MCH 25.6 pg (25.7-33.7); MCHC 33.8 g/dl (32.0-36.0); MEAN CELL VOLUME 75.6 fl (80-96); MEAN PLT VOLUME 8.8 fl (7.5-11.1); MONO % 8.1 % (3.8-10.2); NEUT % 66.9 % (42.8-82.8); PLATELET COUNT 353 10^3/uL (134-434); RDW 16.5 % (11.6-15.6); WHITE BLOOD COUNT 8.5 K/mm3 (4.0-10.0)
[2021-12-14 02:38] LABS: BLOOD UREA NITROGEN 4.4 mg/dL (7-18)
[2021-12-14 02:41] LABS: CREATININE 0.4 mg/dL (0.55-1.3)
[2021-12-14 02:43] LABS: BILIRUBIN,TOTAL 0.2 mg/dL (0.2-1); TOT PROT 7.6 g/dl (6.4-8.2)
[2021-12-14] MEDS ORDERED: TERBUTALINE SULFATE 1 MG/1 ML VIAL SQ ONE ×2 (03:40→03:41)
[2021-12-14] MEDS ORDERED: LACTATED RINGERS SOLUTION 1,000 ML IV SCH (03:40)
[2021-12-14 04:45] LABS: URINE APPEARANCE CLEAR; URINE BILIRUBIN NEGATIVE (NEGATIVE); URINE COLOR YELLOW; URINE GLUCOSE (UA) NEGATIVE (NEGATIVE); URINE KETONE NEGATIVE (NEGATIVE); URINE LEUK ESTERASE NEGATIVE (NEGATIVE); URINE NITRITE NEGATIVE (NEGATIVE); URINE PROTEIN NEGATIVE (NEGATIVE); URINE UROBILINOGEN 0.2 mg/dL (0.2-1.0)
[2021-12-14 05:05] VITALS: BP 133/83; PULSE 100; TEMP 98.3
== END 2021-12-14 05:41 | disposition home or self-care (01) ==
LOC: JER 22:14
PROC: 3E0337Z Introduction of Electrolytic and Water Balance Substance into Peripheral Vein, Percutaneous Approach (ICD-10-PCS; principal; 2021-12-13)
PROC: 3E023GC Introduction of Other Therapeutic Substance into Muscle, Percutaneous Approach (ICD-10-PCS; principal; 2021-12-13)
DX: R42 Dizziness and giddiness (principal)
CPT/HCPCS: 36415; 76801-TC; 76817-TC; 80053; 81003; 85025; 87086; 87186; 99284-25

== ENCOUNTER 2022-02-24 05:50 | Observation (INO) | payer OTHER ==
[2022-02-24] MEDS ORDERED: ELECTROLYTE-148 SOLN 1,000 ML IV SCH ×2 (18:30→22:15)
[2022-02-24] MEDS: INDOMETHACIN 25 MG CAPSULE PO SCH (19:35)
[2022-02-24 20:29] VITALS: RESP 20
[2022-02-24] MEDS ORDERED: TERBUTALINE SULFATE 1 MG/1 ML VIAL SQ ONE ×2 (21:18→21:36)
[2022-02-24 21:28] LABS: PH,URINE 5.5 (5.0-8.0); URINE APPEARANCE CLEAR; URINE BILIRUBIN NEGATIVE (NEGATIVE); URINE COLOR YELLOW; URINE GLUCOSE (UA) NEGATIVE (NEGATIVE); URINE KETONE 2+ (NEGATIVE); URINE LEUK ESTERASE NEGATIVE (NEGATIVE); URINE NITRITE NEGATIVE (NEGATIVE); URINE PROTEIN NEGATIVE (NEGATIVE); URINE UROBILINOGEN 0.2 mg/dL (0.2-1.0)
[2022-02-24] MEDS ORDERED: BETAMET ACET/BETAMET NA PH 30 MG/5 ML VIAL IM SCH (23:13)
[2022-02-25] MEDS: INDOMETHACIN 25 MG CAPSULE PO SCH (01:35)
[2022-02-25 02:57] VITALS: BMI 32.0
[2022-02-25 03:10] VITALS: BP 110/78; PULSE 84; TEMP 98.1
== END 2022-02-25 03:33 | disposition home or self-care (01) ==
LOC: JDEL 05:50 → JLDR 02-25 01:50
PROVIDERS: ADMIT Obstetrics & Gynecology; ATTEND Obstetrics & Gynecology
PROC: 3E0234Z Introduction of Serum, Toxoid and Vaccine into Muscle, Percutaneous Approach (ICD-10-PCS; principal; 2022-02-25)
PROC: 4A1HXCZ Monitoring of Products of Conception, Cardiac Rate, External Approach (ICD-10-PCS; 2022-02-25)
DX: O26.893 Other specified pregnancy related conditions, third trimester (principal); Z3A.33 33 weeks gestation of pregnancy; D25.9 Leiomyoma of uterus, unspecified
CPT/HCPCS: 59025; 76817-TC; 76819-TC; 81003; 96372; G0378; G0463-25

== ENCOUNTER 2022-04-05 07:00 | Inpatient (IN) | payer OTHER ==
[2022-04-05] MEDS ORDERED: CITRIC ACID/SODIUM CITRATE 30 ML UNIT-DOSE CUP PO ONE (07:21)
[2022-04-05] MEDS ORDERED: ELECTROLYTE-148 SOLN 500 ML IV ONE (07:21)
[2022-04-05] MEDS ORDERED: morphine SULFATE/PF 1 MG/2 ML (2cc Syringe - QUVA) ONE (07:30)
[2022-04-05] MEDS ORDERED: ePHEDrine SULFATE 50 MG/1 ML AMPULE ONE (07:30)
[2022-04-05 07:47] VITALS: BMI 33.5
[2022-04-05] MEDS ORDERED: ONDANSETRON 4 MG/2 ML VIAL IVPUSH PRN (07:48)
[2022-04-05] MEDS ORDERED: ACETAMINOPHEN 325 MG TABLET (FP) PO PRN (07:48)
[2022-04-05] MEDS ORDERED: morphine SULFATE/PF 1 MG/2 ML (2cc Syringe - QUVA) EP ONE (07:48)
[2022-04-05] MEDS: ELECTROLYTE-148 SOLN 1,000 ML IV SCH (08:15)
[2022-04-05 09:23] LABS: CORD HCO3 23.4 mmHg (20-29); CORD pH 7.239 (7.14-7.44)
[2022-04-05 09:27] LABS: CORD BASE EXCESS -3.7 mmol/L (0-2); CORD HCO3 21.5 mmHg (20-29); CORD PCO2 39.8 mmHg (30-78); CORD pH 7.351 (7.14-7.44)
[2022-04-05] MEDS ORDERED: MIDAZOLAM HCL 2 MG/2 ML SINGLE DOSE VIAL ONE (09:32)
[2022-04-05] MEDS ORDERED: METHYLERGONOVINE MALEATE 0.2 MG/1 ML AMP IM PRN (10:02)
[2022-04-05] MEDS: OXYTOCIN 20 UNITS in 0.9% NS 20 UNIT/1,000 ML INFUS.BAG IV SCH ×2 (10:10→19:01)
[2022-04-05] MEDS: IBUPROFEN 800 MG/8 ML IJ IVPB PRN ×2 (10:30→19:00)
[2022-04-05] MEDS: CEFAZOLIN 1 GM in DEXTROSE 5%-WATER - 50 ML IVPB SCH (17:34)
[2022-04-05] MEDS ORDERED: CEFAZOLIN 1 GM in DEXTROSE 5%-WATER 50 ML IVPB SCH (18:00)
[2022-04-05] MEDS: SIMETHICONE 80 MG TAB.CHEW (FP) PO PRN (19:01)
[2022-04-05] MEDS ORDERED: oxyCODONE HCL 5 MG TABLET PO PRN (22:02)
[2022-04-06] MEDS: CEFAZOLIN 1 GM in DEXTROSE 5%-WATER - 50 ML IVPB SCH ×2 (01:55→09:51)
[2022-04-06] MEDS: SIMETHICONE 80 MG TAB.CHEW (FP) PO PRN ×4 (01:56→19:30)
[2022-04-06] MEDS: IBUPROFEN 800 MG/8 ML IJ IVPB PRN (02:20)
[2022-04-06] MEDS: oxyCODONE HCL 5 MG TABLET PO PRN ×2 (08:38→19:30)
[2022-04-06 08:44] LABS: BASO % 0.5 % (0-2.0); EOS % 0.8 % (0-4.5); HEMATOCRIT 30.4 % (32.4-45.2); HEMOGLOBIN 9.8 GM/dL (10.7-15.3); MCH 22.2 pg (25.7-33.7); MCHC 32.3 g/dl (32.0-36.0); MEAN CELL VOLUME 68.9 fl (80-96); MEAN PLT VOLUME 9.1 fl (7.5-11.1); MONO % 5.1 % (3.8-10.2); NEUT % 81.6 % (42.8-82.8); PLATELET COUNT 250 10^3/uL (134-434); RBC 4.41 M/mm3 (3.60-5.2); RDW 22.2 % (11.6-15.6); WHITE BLOOD COUNT 14.2 K/mm3 (4.0-10.0)
[2022-04-06] MEDS: ENOXAPARIN NA (PORCINE) 40 MG/0.4 ML DISP.SYRIN SQ SCH (09:44)
[2022-04-06] MEDS: PRENATAL VITAMINS W/ FOLIC ACID TABLET (FP) PO SCH (09:46)
[2022-04-06] MEDS ORDERED: BISACODYL 10 MG SUPP.RECT RC PRN (10:02)
[2022-04-06] MEDS: IBUPROFEN 600 MG TABLET (FP) PO PRN (13:16)
[2022-04-06] MEDS: SENNOSIDES/DOCUSATE COMBO (SENNA PLUS) TABLET (UD) PO PRN (19:35)
[2022-04-06] MEDS: OXYTOCIN 20 UNITS in 0.9% NS 20 UNIT/1,000 ML INFUS.BAG IV SCH (19:38)
[2022-04-06] MEDS: ELECTROLYTE-148 SOLN 1,000 ML IV SCH (19:38)
[2022-04-06] MEDS: FERROUS SO4 325 MG TABLET (FP) PO SCH (22:00)
[2022-04-07] MEDS: oxyCODONE HCL 5 MG TABLET PO PRN (03:45)
[2022-04-07] MEDS ORDERED: IRON SUCROSE INJECTION 100 MG in SODIUM CHLORIDE 95 ML IVPB ONE (09:00)
[2022-04-07] MEDS: FERROUS SO4 325 MG TABLET (FP) PO SCH ×2 (09:32→22:18)
[2022-04-07] MEDS: IBUPROFEN 600 MG TABLET (FP) PO PRN ×3 (09:32→22:15)
[2022-04-07] MEDS: SIMETHICONE 80 MG TAB.CHEW (FP) PO PRN ×3 (09:32→22:18)
[2022-04-07] MEDS: ENOXAPARIN NA (PORCINE) 40 MG/0.4 ML DISP.SYRIN SQ SCH (09:32)
[2022-04-07] MEDS: PRENATAL VITAMINS W/ FOLIC ACID TABLET (FP) PO SCH (09:32)
[2022-04-07] MEDS: ELECTROLYTE-148 SOLN 1,000 ML IV SCH (22:16)
[2022-04-07] MEDS: SENNOSIDES/DOCUSATE COMBO (SENNA PLUS) TABLET (UD) PO PRN (22:18)
[2022-04-07 23:11] VITALS: RESP 16
[2022-04-08] MEDS: SIMETHICONE 80 MG TAB.CHEW (FP) PO PRN (05:18)
[2022-04-08] MEDS: IBUPROFEN 600 MG TABLET (FP) PO PRN (05:18)
[2022-04-08 08:38] LABS: BASO % 0.3 % (0-2.0); EOS % 3.5 % (0-4.5); HEMATOCRIT 26.6 % (32.4-45.2); HEMOGLOBIN 8.9 GM/dL (10.7-15.3); LYMPH % 14.2 % (8-40); MCH 23.5 pg (25.7-33.7); MCHC 33.6 g/dl (32.0-36.0); MONO % 6.3 % (3.8-10.2); NEUT % 75.7 % (42.8-82.8); PLATELET COUNT 253 10^3/uL (134-434); RBC 3.79 M/mm3 (3.60-5.2); RDW 23.2 % (11.6-15.6); WHITE BLOOD COUNT 9.2 K/mm3 (4.0-10.0)
[2022-04-08 08:53] VITALS: BP 126/77; PULSE 63; TEMP 98.1
[2022-04-08 09:29] LABS: ANISOCYTOSIS 3+; MACROCYTOSIS 0
[2022-04-08] MEDS: ENOXAPARIN NA (PORCINE) 40 MG/0.4 ML DISP.SYRIN SQ SCH (09:48)
[2022-04-08] MEDS: PRENATAL VITAMINS W/ FOLIC ACID TABLET (FP) PO SCH (09:48)
[2022-04-08] MEDS: FERROUS SO4 325 MG TABLET (FP) PO SCH (09:48)
== END 2022-04-08 13:40 | disposition home or self-care (01) | DRG 540 ==
LOC: JLDR 07:00 → J3W 13:00
PROVIDERS: ADMIT Obstetrics & Gynecology; ATTEND Obstetrics & Gynecology
PROC: 10D00Z1 Extraction of Products of Conception, Low, Open Approach (ICD-10-PCS; principal; 2022-04-05)
PROC: 0UB90ZZ Excision of Uterus, Open Approach (ICD-10-PCS; 2022-04-05)
PROC: 30233N1 Transfusion of Nonautologous Red Blood Cells into Peripheral Vein, Percutaneous Approach (ICD-10-PCS; 2022-04-06)
DX: O34.211 Maternal care for low transverse scar from previous cesarean delivery (principal); O32.2XX0 Maternal care for transverse and oblique lie, not applicable or unspecified; O99.02 Anemia complicating childbirth; D50.9 Iron deficiency anemia, unspecified; O34.13 Maternal care for benign tumor of corpus uteri, third trimester; D25.1 Intramural leiomyoma of uterus; D25.2 Subserosal leiomyoma of uterus; Z3A.38 38 weeks gestation of pregnancy; Z37.0 Single live birth
CPT/HCPCS: 36415; 36430; 36600; 80053; 81003; 82803; 85025; 85610; 86780; 86850; 86900; 86901; 86922; 88305-TC; 88307-TC; C9803-CS; J1756; P9058; U0003; U0005

== ENCOUNTER 2024-03-16 07:44 | Emergency (ER) | payer OTHER ==
[2024-03-16 07:48] VITALS: BP 108/71; PULSE 74; RESP 20; TEMP 98; BMI 25.6
[2024-03-16] MEDS ORDERED: FAMOTIDINE 20 MG/50 ML IVPB 20 MG/50 ML MG IVPB ONE (08:45)
[2024-03-16] MEDS ORDERED: ACETAMINOPHEN 500 MG TABLET (FP) ONE (08:45)
[2024-03-16 08:48] LABS: INR 1.08 (0.83-1.09); PROTHROMBIN TIME (PATIENT) 12.4 SEC (9.7-13.0)
[2024-03-16] MEDS ORDERED: ASPIRIN 81 MG CHEWABLE TABLETS ONE (08:48)
[2024-03-16] MEDS: ACETAMINOPHEN 500 MG TABLET (FP) PO ONE (08:55)
[2024-03-16] MEDS: ASPIRIN 81 MG CHEWABLE TABLETS PO ONE (08:55)
[2024-03-16] MEDS: FAMOTIDINE 20 MG/50 ML IVPB 20 MG/50 ML MG IVPB ONE (08:55)
[2024-03-16 09:09] LABS: BASO % 0.8 % (0-2.0); EOS % 6.7 % (0-4.5); HEMATOCRIT 35.6 % (32.4-45.2); HEMOGLOBIN 12.5 GM/dL (10.7-15.3); LYMPH % 46.3 % (8-40); MCH 28.4 pg (25.7-33.7); MCHC 35.2 g/dl (32.0-36.0); MEAN CELL VOLUME 80.9 fl (80-96); MEAN PLT VOLUME 9.1 fl (7.5-11.1); MONO % 9.1 % (3.8-10.2); NEUT % 37.1 % (42.8-82.8); PLATELET COUNT 281 10^3/uL (134-434); RDW 14.2 % (11.6-15.6); WHITE BLOOD COUNT 3.5 K/mm3 (4.0-10.0)
[2024-03-16 09:38] LABS: POTASSIUM 3.7 mmol/L (3.5-5.1)
[2024-03-16 09:39] LABS: ALBUMIN 3.4 g/dl (3.4-5.0); BLOOD UREA NITROGEN 11.1 mg/dL (7-18); CALCIUM 9.1 mg/dL (8.5-10.1); MAGNESIUM 1.9 mg/dL (1.8-2.4)
[2024-03-16 09:44] LABS: BILIRUBIN,TOTAL 0.4 mg/dL (0.2-1); CREATININE 0.6 mg/dL (0.55-1.3); TOT PROT 6.9 g/dl (6.4-8.2)
[2024-03-16 12:32] LABS: HIV INTERPRETATION NEGATIVE (NEGATIVE)
== END 2024-03-16 10:08 | disposition home or self-care (01) ==
LOC: JER 07:44
PROC: 3E033GC Introduction of Other Therapeutic Substance into Peripheral Vein, Percutaneous Approach (ICD-10-PCS; principal; 2024-03-16)
DX: R07.2 Precordial pain (principal)
CPT/HCPCS: 36415; 71046-TC-FY; 80053; 82550; 83735; 84484; 85025; 85379; 85610; 85730; 86803; 87389; 93005; 93010; 96365; 99285-25